=== PATIENT | male | born 1980 | race Caucasian/White ===

== ENCOUNTER 2019-11-30 09:41 | Inpatient (IN) | payer MEDICAID, OTHER ==
[~2019-11-30] VITALS: Ht 182.9 cm; Wt 95.3 kg
[2019-11-30] VITALS (11 sets, daily range): BP systolic 102–154; BP diastolic 52–93
--- NOTE | 2019-11-30 09:42 | NUR ---
Dr Ruiz at the bedside for MSE.
[2019-11-30] MEDS ORDERED: ALBUTEROL SULFATE 8 GM HFA.AER.AD IH PRN (09:45)
[2019-11-30 10:10] LABS: BASOPHILS # (AUTO) 0.1 K/uL (0.0-8.0); BASOPHILS % (AUTO) 0.3 % (0.0-2.0); EOSINOPHILS % (AUTO) 0.1 % (0.0-7.0); HEMATOCRIT 46.8 % (36.7-47.1); HEMOGLOBIN 15.9 g/dL (12.5-16.3); LYMPHOCYTES # (AUTO) 0.8 K/uL (20.0-40.0); LYMPHOCYTES % (AUTO) 4.2 % (20.5-51.5); MEAN CORPUSCULAR HEMOGLOBIN 29.6 uug (23.8-33.4); MEAN CORPUSCULAR HGB CONC 34 g/dL (32.5-36.3); MONOCYTES # (AUTO) 1.2 K/uL (2.0-10.0); MONOCYTES % (AUTO) 6.7 % (0.0-11.0); NEUTROPHILS # (AUTO) 15.9 K/uL (1.8-8.9); NEUTROPHILS % (AUTO) 88.7 % (38.5-71.5); PLATELET COUNT (AUTO) 209 K/uL (152-348); RED BLOOD CELL COUNT(AUTO) 5.39 MIL/uL (4.06-5.63)
[2019-11-30 10:16] LABS: CREATININE 3.7 mg/dL (0.6-1.3); POTASSIUM 3.5 mmol/L (3.5-5.1)
[2019-11-30 10:21] LABS: BILIRUBIN,DIRECT 0.3 mg/dL (0.0-0.2); TOTAL PROTEIN, SERUM 7.8 g/dL (6.4-8.2)
[2019-11-30] MEDS ORDERED: CLONIDINE HCL 0.2 MG TABLET PO ONE (10:30)
[2019-11-30] MEDS ORDERED: IV NORMAL SALINE 500 ML BAG IV ONE (10:30)
[2019-11-30] MEDS ORDERED: ONDANSETRON 4 MG/2 ML VIAL IV ONE (10:30)
[2019-11-30] MEDS ORDERED: VANCOMYCIN IV 1,000 MG in IV DEXTROSE 5% 250 ML IV SCH (10:30)
[2019-11-30] MEDS ORDERED: PIPERACILLIN SODIUM/TAZOBACTAM 3.375 G in IV DEXTROSE 5% 50 ML IV SCH (10:30)
[2019-11-30] MEDS ORDERED: PIPERACILLIN/TAZOBACTAM/D5W 50 ML IV ONE (10:32)
[2019-11-30] MEDS ORDERED: ONDANSETRON 4 MG/2 ML VIAL ONE (10:32)
[2019-11-30] MEDS ORDERED: VANCOMYCIN IV 200 ML ONE (10:32)
--- NOTE | 2019-11-30 10:44 | NUR ---
CALLED DR. CORTES FOR CARDIOLOGY CONSULT PER ER MD REQUEST
[2019-11-30 10:57] LABS: FERRITIN 491 ng/mL (26-388); LACTATE DEHYDROGENASE 1039 U/L (85-227)
--- NOTE | 2019-11-30 11:02 | NUR ---
Pt out of ER for CT.
--- NOTE | 2019-11-30 11:22 | NUR ---
baylee smiley talking to Dr. Lundberg for crdiac consult.
[2019-11-30] MEDS ORDERED: HEPARIN/D5W DRIP 500 ML IV PRN (11:30)
[2019-11-30] MEDS ORDERED: HEPARIN SODIUM,PORCINE 5,000 UNITS/ML VIAL ONE (11:43)
[2019-11-30] MEDS ORDERED: HEPARIN/D5W DRIP 500 ML ONE (11:43)
--- NOTE | 2019-11-30 12:29 | NUR ---
RE-PAGED [employer] FOR PANE CALL
--- NOTE | 2019-11-30 13:00 | NUR ---
Received patient from ER. Patient AOX4, SR on the monitor. Pt denies SOB on 6LPM NC. Pt denies pain and discomfort. Received patient on heparin drip for elevated trops.
[2019-11-30] MEDS ORDERED: HEPARIN SODIUM,PORCINE 5,000 UNITS/ML VIAL IV PRN (13:15)
[2019-11-30] MEDS ORDERED: ACETAMINOPHEN 650 MG SUPP.RECT RC PRN (16:30)
[2019-11-30] MEDS ORDERED: MORPHINE SULFATE 2 MG/1 ML DISP.SYRIN IV PRN (16:30)
[2019-11-30] MEDS ORDERED: ONDANSETRON 4 MG/2 ML VIAL IV PRN (16:30)
[2019-11-30] MEDS: IPRATROPIUM/ALBUTEROL SULFATE 14.7 GM INHALER INH SCH ×3 (16:45→23:21)
[2019-11-30] MEDS: IV D5/ 0.9% NACL 1,000 ML IV PRN (16:47)
--- NOTE | 2019-11-30 17:00 | NUR ---
Pulmonary services Dr. Lakhani in the unit, full report given to Dr. Lakhani. See order history for new orders. Dr. Lakhani at bedside assessing patient.
[2019-11-30 17:05] LABS: ABG BASE EXCESS -3.8 mmol/L; ABG HCO3 20.8 mmol/L; ABG PCO2 36.4 mmHg (35.0-45.0); ABG PH 7.374 (7.350-7.450); ABG PO2 84.2 mmHg (75.0-100.0); ABG SITE RIGHT RADIAL; ABG TOTAL HEMOGLOBIN 15.1 G/dL (13.5-18.0); COHb 1.2 % (0.5-1.5); MetHb 0.2 % (0.0-1.5); O2Hb 95.2 % (94.0-97.0); VENT MODE Nasal Cannula
[2019-11-30] MEDS: methylPREDNISolone SOD SUCC 40 MG/ML VIAL IV SCH ×2 (17:23→22:24)
[2019-11-30] MEDS: PIPERACILLIN/TAZO 2.25 G in IV DEXTROSE 5% 50 ML IV SCH (17:42)
--- NOTE | 2019-11-30 17:48 | NUR ---
Nephrology services Dr. Lorenz in the unit, full report given to Dr. Cerda. See order history for new orders.
[2019-11-30] MEDS ORDERED: HEPARIN SODIUM,PORCINE 5,000 UNITS/ML VIAL IV ONE (19:10)
--- NOTE | 2019-11-30 19:42 | NUR ---
A call to cardiology services, Dr. Pepper for heparin drip clarification orders. Dr. gould of current protocol been follow and order to switch drip to follow ACS protocol. Will continue with care plan. Addendum: 12/01/19 at 0026 by DELPHINE DE LA TORRE RN juan Hernandez present and informed as well.
--- NOTE | 2019-11-30 19:50 | NUR ---
Attending physician Angelica Ospina in the unit to see and examine pt. report given orders to continue with care plan received.
[2019-11-30 21:06] LABS: *BILIRUBIN,URIN NEGATIVE (NEGATIVE); *BLOOD, URINE 3+ (NEGATIVE); *CLARITY,URINE CLEAR (CLEAR); *COLOR,URINE YELLOW (YELLOW); *KETONES,URINE NEGATIVE (NEGATIVE); *UROBILINOGEN,URINE 0.2 E.U./dl (NORMAL); LEUKOCYTE ESTERASE ,URINE NEGATIVE (NEGATIVE); NITRITE, URINE NEGATIVE (NEGATIVE); UGLUCOSE NEGATIVE (NEGATIVE)
[2019-11-30 21:15] LABS: *CREATININE,URINE 164.6 mg/dL (30-125)
[2019-11-30 21:19] LABS: *AMPHETAMINE, URINE POSITIVE (NEGATIVE); *BARBITURATE, URINE NEGATIVE (NEGATIVE); *CANNABINOID, URINE POSITIVE (NEGATIVE); *COCCAINE, URINE NEGATIVE (NEGATIVE); *OPIATE, URINE POSITIVE (NEGATIVE); *PHENCYCLIDINE SCREEN,URINE NEGATIVE (NEGATIVE)
[2019-12-01] VITALS (17 sets, daily range): BP systolic 129–161; BP diastolic 63–110
[2019-12-01 00:24] LABS: BACTERIA,URINE NONE SEEN /HPF (NONE SEEN); RBC,URINE 0-3 /HPF (0-3); SQUAMOUS EPITHELIAL CELL,UR FEW /HPF (NONE SEEN); WBC,URINE 0-3 /HPF (0-3)
--- NOTE | 2019-12-01 02:15 | NUR ---
For a PTT of 33.6 as per Acute Coronary Syndrome protocol and yard switcher orders patient to received a bolus of 5400 units, and increased rate by 250 units/hr. Heparin drip to run at 800units/hr. With next ptt in 6 hours. Will continue with care plan.
[2019-12-01] MEDS ORDERED: HEPARIN SODIUM,PORCINE 5,000 UNITS/ML VIAL IV PRN (02:30)
[2019-12-01] MEDS: IPRATROPIUM/ALBUTEROL SULFATE 14.7 GM INHALER INH SCH ×4 (04:13→15:04)
[2019-12-01 05:13] LABS: BASOPHILS % (AUTO) 0.1 % (0.0-2.0); HEMATOCRIT 48.8 % (36.7-47.1); HEMOGLOBIN 16.6 g/dL (12.5-16.3); LYMPHOCYTES # (AUTO) 0.4 K/uL (20.0-40.0); LYMPHOCYTES % (AUTO) 2.7 % (20.5-51.5); MEAN CORPUSCULAR HEMOGLOBIN 29.5 uug (23.8-33.4); MEAN CORPUSCULAR HGB CONC 34 g/dL (32.5-36.3); MEAN CORPUSCULAR VOLUME 86.6 fL (73.0-96.2); MONOCYTES # (AUTO) 0.3 K/uL (2.0-10.0); MONOCYTES % (AUTO) 1.7 % (0.0-11.0); NEUTROPHILS # (AUTO) 13.9 K/uL (1.8-8.9); NEUTROPHILS % (AUTO) 95.5 % (38.5-71.5); PLATELET COUNT (AUTO) 188 K/uL (152-348); RED BLOOD CELL COUNT(AUTO) 5.63 MIL/uL (4.06-5.63); WHITE BLOOD COUNT (AUTO) 14.6 K/uL (3.6-10.2)
[2019-12-01 05:23] LABS: BILIRUBIN,TOTAL 1.5 mg/dL (0.2-1.0); CREATININE 1.8 mg/dL (0.6-1.3); MAGNESIUM 2.4 mg/dL (1.8-2.4); PHOSPHOROUS 3.8 mg/dL (2.5-4.9); POTASSIUM 4.6 mmol/L (3.5-5.1); TOTAL PROTEIN, SERUM 7.5 g/dL (6.4-8.2)
[2019-12-01 05:31] LABS: THYROID STIMULATING HORMONE 0.368 mIU/mL (0.358-3.740)
--- NOTE | 2019-12-01 05:38 | NUR ---
patient with an anxiety episode, getting out of bed restless and severely agitated stating "I need to leave, people are here to get me" Patient reoriented, and stone rougher notified. Awaiting call back.
[2019-12-01] MEDS: methylPREDNISolone SOD SUCC 40 MG/ML VIAL IV SCH (05:45)
[2019-12-01] MEDS: PIPERACILLIN/TAZO 2.25 G in IV DEXTROSE 5% 50 ML IV SCH ×3 (05:46)
--- NOTE | 2019-12-01 06:25 | NUR ---
A call from Dr. Brink and orders received an implemented.
--- NOTE | 2019-12-01 07:15 | NUR ---
Received repot from freight rate analyst nurse, patient in bed asleep, no distress noted at this time, sinus rhythm on the monitor, oxygen saturation of 98% on 4L nasal cannula. Heparin infusion at 800 Units/h, d5ns running at 70cc/hr. Bed in low position, side rails upx2.
[2019-12-01] MEDS: LORAZEPAM 2 MG/1 ML VIAL IV PRN ×2 (07:27→14:26)
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
[2019-12-01] MEDS: IV D5/ 0.9% NACL 1,000 ML IV PRN (08:10)
[2019-12-01] MEDS ORDERED: PANTOPRAZOLE SODIUM 40 MG VIAL IV SCH (09:00)
--- NOTE | 2019-12-01 09:00 | NUR ---
Dr. Lakhani at bedside to assess patient, full report given.
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
[2019-12-01] MEDS ORDERED: ZIPRASIDONE MESYLATE 20 MG VIAL IM PRN (10:15)
--- NOTE | 2019-12-01 10:32 | NUR ---
Dr. Cerda at bedside to assess patient.
[2019-12-01] MEDS ORDERED: VANCOMYCIN IV 1,000 MG in IV DEXTROSE 5% 250 ML IV SCH (11:00)
--- NOTE | 2019-12-01 12:20 | NUR ---
WOUND CARE CONSULT: REVIEWED CHART, NURSING DOCUMENTATION AND PHOTOS WHICH INDICATE MULTIPLE AREAS OF BRUISING/SKIN DISCOLORATION, PRESENT ON ADMISSION. RECOMMENDATIONS MADE FOR SKIN PROTECTION. DISCUSSED WITH NURSING STAFF. CURRENT KORINA SCORE IS 19. WILL SEE PRN. BARAKAT IN AGREEMENT WITH PLAN OF CARE.
[2019-12-01] MEDS ORDERED: Z GUARD REMEDY PASTE 57 GM TUBE TOP PRN (12:30)
[2019-12-01] MEDS ORDERED: MEROPENEM 1 G in IV NORMAL SALINE 100 ML IV SCH ×2 (14:00→22:00)
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
[2019-12-01] MEDS ORDERED: MORPHINE SULFATE 4 MG/1 ML DISP.SYRIN IV PRN (16:30)
--- NOTE | 2019-12-01 16:44 | NUR ---
Patient became irate and started saying, " You are trying to hurt me, what do you want me to do sit here and take it, look at my eye". Patient offered morphine for pain and he refused. IV's were removed, homeless resource packet given and information systems security analyst called to assist patient out of the hospital.
--- NOTE | 2019-12-01 16:50 | NUR ---
4:40pm: SW arrived to patient's unit to provide the homeless resource packet, along with the homeless patient waiver form, to patient's nurse in order for the patient's nurse to provide it to the patient upon discharge. DESMOND was informed by RN Kaya that patient was leaving AMA and that patient's nurse Gloria was busy with the patient. DESMOND provided Kaya with the homeless resource packet and the waiver form, asking Kaya to offer the packet to the patient and ask him to sign the waiver form. Kaya expressed understanding, and stated she will offer it to the patient. The homeless resource packet includes the following resources: a list of year round shelters [facility] [address], ; [facility] [address] [facility], ; and [facility] [address] [facility], [phone], along with resources for places to go for food, showers, substance abuse treatment, mental health services, community medical clinics, and pharmacies. These include the following: the [facility] homeless directory which provides a list of places that individuals can go to throughout the week for hot meals, sack lunches, food pantries, and showers; a list of mental health clinics: [facility] [address] [place] [address], ; [facility] [address] [place] [address], ; [facility] [address] [place] [address], ; a list of medical clinics: [facility] [address] [facility] [address], [place]. [place], ; [facility] [address] [facility], [address], [place] [address]; [facility] [address] [place] [address], ; and a list of substance abuse programs: [facility] Substance Abuse Self-helpline ; [facility] ; [facility] ; [facility] ; [facility] ; [facility] [phone]; [facility] [phone]; location of pharmacies.
[2019-12-01] MEDS ORDERED: levoFLOXacin 750MG/D5W 750 MG in PREMIXED 1 EACH IV SCH (18:00)
[2019-12-01] MEDS ORDERED: methylPREDNISolone SOD SUCC 40 MG/ML VIAL IV SCH (21:00)
[2019-12-05 07:07] LABS: A/G RATIO 1.1 (0.7-1.7); ALBUMIN 3.3 g/dL (2.9-4.4); ALPHA-1-GLOBULIN 0.4 g/dL (0.0-0.4); ALPHA-2-GLOBULIN 0.6 g/dL (0.4-1.0); BETA GLOBULIN 0.9 g/dL (0.7-1.3); GAMMA GLOBULIN 1.1 g/dL (0.4-1.8); M-SPIKE Not Observed g/dL (Not Observed)
[2019-12-06 00:06] LABS: COMPLEMENT, C3 SERUM 106 mg/dL (82-167); COMPLEMENT, C4 SERUM 27 mg/dL (14-44)
== END 2019-12-01 16:44 | disposition left against medical advice (07) | DRG 720 ==
LOC: ER 09:42 → CCU 12:31
PROVIDERS: ADMIT Internal Medicine; ATTEND Internal Medicine
DX: A41.9 Sepsis, unspecified organism (principal); J96.01 Acute respiratory failure with hypoxia; J18.9 Pneumonia, unspecified organism; N17.0 Acute kidney failure with tubular necrosis; G92 Toxic encephalopathy; I21.A1 Myocardial infarction type 2; J45.909 Unspecified asthma, uncomplicated; F17.210 Nicotine dependence, cigarettes, uncomplicated; F11.10 Opioid abuse, uncomplicated; M62.82 Rhabdomyolysis; Z59.0 Homelessness; K56.7 Ileus, unspecified; R74.0 Nonspecific elevation of levels of transaminase and lactic acid dehydrogenase [LDH]; K56.600 Partial intestinal obstruction, unspecified as to cause; F31.9 Bipolar disorder, unspecified; R65.20 Severe sepsis without septic shock; I77.6 Arteritis, unspecified; E66.3 Overweight; Z68.28 Body mass index [BMI] 28.0-28.9, adult
CPT/HCPCS: 36415; 36600; 70030-TC; 71045; 80307; 83605; 83615; 83690; 83735; 83970; 84100; 84155; 84156; 84165; 84300; 84443; 85025; 85651; 85730; 86038; 86160; 86706; 86803; 87040; 87070; 87086; 87340; 87806; 93005; 94640; A4663; C9113; G0378; J1644; J1956; J2060; J2185; J2270; J2405; J2543; J2920; J3370; J3486; J3490; J3535; J7030; J7042; J7060; U0003-CS